=== PATIENT | male | born 1960 | race Caucasian/White ===

== ENCOUNTER → 2017-10-05 | Outpatient (CLI) | payer BC ==
--- NOTE | 2017-10-05 16:03 | KCIC ---
EXAM: Cobb scale and color Doppler testicular sonogram. HISTORY: Pain. TECHNIQUE: Grayscale and color Doppler sonographic imaging of the testes with spectral waveform analysis was performed. COMPARISON: None. FINDINGS: The right testis measures 3.7 x 2.3 x 2.7 cm. The left testis measures 3.0 x 2.3 x 2.8 cm. There is normal blood flow within both testes. There is a single right testicular calcification. There is a 4 mm right epididymal head cyst. There are small bilateral hydroceles. There is a prominent right inguinal lymph node measuring 2.7 x 1.9 x 1.0 cm. IMPRESSION: 1. Small bilateral hydroceles. 2. 4 mm right epididymal head cyst. 3. Single right testicular calcification on the submitted images. In isolation, this is of no clinical significance. Electronically signed by: Julieta Navarrete MD (10/05/2017 3:59 PM) [id number]
== END | disposition home or self-care (01) ==
LOC: KCIC US 13:19
PROVIDERS: ATTEND Urology
DX: N43.3 Hydrocele, unspecified (principal); N50.3 Cyst of epididymis
CPT/HCPCS: 76870

== ENCOUNTER → 2019-03-01 | Outpatient (CLI) | payer BC ==
--- NOTE | 2019-03-01 12:15 | RAD ---
Left lower extremity venous ultrasound, 03/01/2019 : History: Left knee pain, previous DVT Duplex evaluation including grayscale, color flow and spectral Doppler analysis was performed. The left common femoral vein is widely patent. The proximal and mid superficial femoral vein are unremarkable. There is a filling defect in the left superficial femoral vein in the lower thigh extending into the popliteal vein compatible with nonocclusive thrombus. Patent posterior tibial and peroneal veins are present in the left calf. The left greater saphenous vein in the thigh is patent. There is occlusive thrombus within that vessel at the level the knee extending down into the calf. IMPRESSION: 1. Nonocclusive thrombus in the left superficial femoral vein in the lower thigh extending into the popliteal vein. 2. Occlusive thrombus in the left greater saphenous vein extending from the knee down into the calf. Note: The findings were given to Dr. Berry by the clinical lab technologist at the time of exam. Electronically signed by: Yeison Tran MD (03/01/2019 12:12 PM) [facility]
== END | disposition home or self-care (01) ==
LOC: US 11:13
PROVIDERS: ATTEND Internal Medicine Rheumatology
DX: I82.412 Acute embolism and thrombosis of left femoral vein (principal); I82.812 Embolism and thrombosis of superficial veins of left lower extremity
CPT/HCPCS: 93971